=== PATIENT | female | born 1985 | race Caucasian/White ===

== ENCOUNTER 2018-06-01 17:26 | Emergency (ER) | payer SELFPAY ==
--- NOTE | 2018-06-01 19:01 | ER Document Report ---
ED Medical Screen (RME) - General Chief Complaint: Breathing Difficulty Stated Complaint: SHORTNESS OF BREATH Time Seen by Provider: 06/01/18 18:51 Mode of Arrival: Ambulatory Information source: Patient Notes: This is a 33-year-old female who presents to the emergency room with cough, shortness of breath, chills. Patient does have a history of intracranial hypertension (Diamox), pneumonia with pleural effusion requiring thoracentesis (in [place] last January). Patient states she has had the above symptoms for the past 2-3 days and states that it feels like her effusion is coming back. TRAVEL OUTSIDE OF THE [place] IN LAST 30 DAYS: No - Related Data Allergies/Adverse Reactions: No Known Allergies Allergy (Unverified 06/01/18 18:51) Physical Exam - Vital signs Vitals: Temp Pulse Resp BP Pulse Ox 98.4 F 104 H 17 128/76 H 99 06/01/18 17:43 06/01/18 17:43 06/01/18 17:43 06/01/18 17:43 06/01/18 17:43 Course - Vital Signs Vital signs: Temp Pulse Resp BP Pulse Ox 98.4 F 104 H 17 128/76 H 99 06/01/18 17:43 06/01/18 17:43 06/01/18 17:43 06/01/18 17:43 06/01/18 17:43
--- NOTE | 2018-06-01 20:03 | RADIOLOGY REPORT (SQ) ---
EXAM DESCRIPTION: XR CHEST 2 VIEWS COMPLETED DATE/TME: 06/01/2018 19:00 CLINICAL HISTORY: 33 years, Female, sob Findings: The heart is not enlarged. No consolidation or pleural effusion. No pulmonary edema or pneumothorax. IMPRESSION: No acute disease.
[2018-06-01 20:16] LABS: ABSOLUTE EOSINOPHILS # (AUTO) 0.2 10^3/uL (0.0-0.6); ABSOLUTE LYMPHOCYTES (AUTO) 2.9 10^3/uL (0.5-4.7); ABSOLUTE MONOCYTES (AUTO) 0.7 10^3/uL (0.1-1.4); ABSOLUTE NEUT (AUTO) 7.6 10^3/uL (1.7-8.2); BASOPHILS % (AUTO) 0.4 % (0-2); EOSINOPHILS % (AUTO) 1.9 % (0-6); HEMATOCRIT 45.5 % (36.0-47.0); HEMOGLOBIN 15.2 g/dL (12.0-15.5); LYMPHOCYTES % (AUTO) 25.3 % (13-45); MEAN CORPUSCULAR HEMOGLOBIN 30.5 pg (27.0-33.4); MEAN CORPUSCULAR HGB CONC 33.5 g/dL (32.0-36.0); MEAN CORPUSCULAR VOLUME 91 fl (80-97); MONOCYTES % (AUTO) 5.8 % (3-13); PLATELET COUNT 269 10^3/uL (150-450); RED CELL DISTRIBUTION WIDTH 14.9 % (11.5-14.0); SEGMENTED NEUTROPHILS % (AUTO) 66.6 % (42-78); TOTAL CELLS COUNTED % (AUTO) 100 %; WHITE BLOOD COUNT 11.4 10^3/uL (4.0-10.5)
[2018-06-01 20:29] LABS: INTERNATIONAL RATION (INR) 0.96; PROTHROMBIN TIME 13.3 SEC (11.4-15.4)
[2018-06-01 20:41] LABS: ALANINE AMINOTRANSFERASE 35 U/L (9-52); ALKALINE PHOSPHATASE 110 U/L (38-126); ANION GAP 7 (5-19); ASPARTATE AMINO TRANSFERASE 21 U/L (14-36); BILIRUBIN,DIRECT 0.2 mg/dL (0.0-0.4); BILIRUBIN,TOTAL 0.2 mg/dL (0.2-1.3); BLOOD UREA NITROGEN 10 mg/dL (7-20); CALCIUM 9.7 mg/dL (8.4-10.2); CARBON DIOXIDE 25 mmol/L (22-30); CHLORIDE 107 mmol/L (98-107); GLUCOSE 75 mg/dL (75-110); POTASSIUM 4.2 mmol/L (3.6-5.0); SODIUM 138.8 mmol/L (137-145); TOTAL PROTEIN 6.6 g/dL (6.3-8.2)
--- NOTE | 2018-06-01 21:09 | EKG REPORT ---
SEVERITY:- ABNORMAL ECG - SINUS RHYTHM NONSPECIFIC T ABNORMALITIES, ANTERIOR LEADS : Confirmed by: Renetta High MD 01-Jun-2018 21:08:32
[2018-06-01] MEDS ORDERED: ALBUTEROL SULFATE HFA (90 MCG/PUFF) 200 PUFF/8.5 GM MDI IH ONE (21:32)
[2018-06-01] MEDS ORDERED: LIDOCAINE 5% (700 MG) TRANSDERMAL ADH..PATCH TP ONE (21:32)
[2018-06-01] MEDS ORDERED: KETOROLAC TROMETHAMINE 60 MG/2 ML SDV IM ONE (21:32)
[2018-06-01] MEDS ORDERED: PREDNISONE 20 MG TABLET PO ONE (21:32)
--- NOTE | 2018-06-01 21:38 | ER Document Report ---
ED General - General Chief Complaint: Breathing Difficulty Stated Complaint: SHORTNESS OF BREATH Time Seen by Provider: 06/01/18 18:51 Mode of Arrival: Ambulatory Notes: Patient is a 33-year-old female with a past medical history of a pleural effusion in January who presents stating that she has the feeling that she has the same condition again. The patient reports that she has been coughing, felt short of breath and has shoulder and chest wall pain when she coughs. States her symptoms been ongoing for the past 3-4 days and getting progressively worse. Nothing improves or worsens the symptoms. She does not have a local primary care physician. She does continue to smoke. She has not had fever, vomiting, headache, or syncope. TRAVEL OUTSIDE OF THE [place] IN LAST 30 DAYS: No - Related Data Allergies/Adverse Reactions: No Known Allergies Allergy (Unverified 06/01/18 18:51) Past Medical History - General Information source: Patient - Social History Smoking Status: Current Every Day Smoker Frequency of alcohol use: None Drug Abuse: None Lives with: Family Family History: Reviewed & Not Pertinent Patient has suicidal ideation: No Patient has homicidal ideation: No - Past Medical History Cardiac Medical History: Reports: Hx Hypertension Pulmonary Medical History: Reports: Hx Pneumonia Renal/ Medical History: Reports: Hx Kidney Stones. Denies: Hx Peritoneal Dialysis Psychiatric Medical History: Comment Only: Hx Depression - anxiety Past Surgical History: Reports: Hx Section, Hx Cholecystectomy, Hx Kidney (Renal Surgery) - stone removal Review of Systems - Review of Systems Notes: Constitutional: Negative for fever. HENT: Negative for sore throat. Eyes: Negative for visual changes. Cardiovascular: Positive for chest wall pain Respiratory: Positive for shortness of breath. Gastrointestinal: Negative for abdominal pain, vomiting or diarrhea. Genitourinary: Negative for dysuria. Musculoskeletal: Negative for back pain. Skin: Negative for rash. Neurological: Negative for headaches, weakness or numbness. 10 point ROS negative except as marked above and in HPI. Physical Exam - Vital signs Vitals: Temp Pulse Resp BP Pulse Ox 98.4 F 104 H 17 128/76 H 99 06/01/18 17:43 06/01/18 17:43 06/01/18 17:43 06/01/18 17:43 06/01/18 17:43 Interpretation: Tachycardic - Resolved at the time of my assessment, heart rate 74 Notes: PHYSICAL EXAMINATION: GENERAL: Well-appearing, well-nourished and in no acute distress. HEAD: Atraumatic, normocephalic. EYES: Pupils equal round and reactive to light, extraocular movements intact, sclera anicteric, conjunctiva are normal. ENT: nares patent, oropharynx clear without exudates. Moist mucous membranes. NECK: Normal range of motion, supple without lymphadenopathy LUNGS: Breath sounds clear to auscultation bilaterally and equal. No wheezes rales or rhonchi. HEART: Regular rate and rhythm without murmurs ABDOMEN: Soft, nontender, normoactive bowel sounds. No guarding, no rebound. No masses appreciated. EXTREMITIES: Normal range of motion, no pitting or edema. No cyanosis. NEUROLOGICAL: No focal neurological deficits. Moves all extremities spont aneously and on command. PSYCH: Normal mood, normal affect. SKIN: Warm, Dry, normal turgor, no rashes or lesions noted. Course - Re-evaluation Re-evalutation: 06/01/18 21:35 Patient presents with a clinical history and exam most consistent with an acute viral bronchitis. Patient is overall well in appearance without tachypnea, hypoxemia, tachycardia, or difficulty with ambulation. Breath sounds are clear bilaterally with exception of faint expiratory wheezing. No fever. Patient does have additional signs of upper respiratory infection including nasal congestion, sore throat, and sinus pressure. No indication for labs or imaging. Will treat with bronchodilators, single dose of dexamethasone, and Tessalon Perles. Patient was very concerned about the possibility of a recurrent pleural effusion. I did spend greater than 20 minutes explaining to the patient that her chest x-ray does not demonstrate a pleural effusion today neither on my review nor the radiologist review. She also does not have any significant l eukocytosis, no tachycardia the time of my assessment at heart rate of 74, no tachypnea, hypoxia or retractions. There is no diminished breath sounds in any manner. The patient did repeatedly state "whether or not it shows that I know it is there". I did offer to proceed with a CT of her chest to more alleviate her concern but did review the risks of repeated radiation exposure to the chest as well as that she has a ready had a multitude of CAT scans in the past several months and years for similar concerns. At this point the patient did elect to avoid CT, states she will follow-up as an outpatient for repeat chest x-ray if she does persist with her symptoms. At this time will discharge with return precautions and follow-up recommendations. Verbal discharge instructions given a the bedside and opportunity for questions given. Medication warnings reviewed. Patient is in agreement with this plan and has verbalized understanding of return precautions and the need for primary care follow-up in the next 24-72 hours. - Vital Signs Vital signs: Temp Pulse Resp BP Pulse Ox 98.5 F 81 18 125/66 100 06/01/18 22:05 06/01/18 22:05 06/01/18 22:05 06/01/18 22:05 06/01/18 22:05 - Laboratory Result Diagrams: 06/01/18 19:49 06/01/18 19:49 Laboratory results interpreted by me: 06/01/18 19:49 WBC 11.4 H RDW 14.9 H - Diagnostic Test Radiology reviewed: Image reviewed, Reports reviewed Radiology results interpreted by me: 06/01/18 21:37 Chest x-ray: No acute infiltrate or pneumothorax - EKG Interpretation by Me Additional EKG results interpreted by me: 06/01/18 21:37 Sinus rhythm, rate 91. No ST elevations or depressions. QTC is 439. Discharge - Discharge Clinical Impression: Persistent cough, Bronchitis, Rib pain on left side, Wheezing, Tobacco abuse Condition: Good Disposition: HOME, SELF-CARE Additional Instructions: You were seen for symptoms most consistent with bronchitis. Your chest x-ray and labs are all normal today. This can take up to 12 weeks to fully resolve. This is generally due to a viral infection. Please follow-up with your primary doctor in the next 2-3 days. Return if you develop worsening cough, vomiting, fever >100.4, pass out, begin coughing blood, or have any other symptoms that are concerning to you. Please use the medications prescribed today as directed. Prescriptions: Tramadol HCl [Ultram 50 mg Tablet] 50 mg PO Q6HP PRN #10 tablet PRN Reason: Benzonatate [Tessalon Perles 100 mg Capsule] 100 mg PO Q8HP PRN #40 capsule PRN Reason: Prednisone [Deltasone 20 mg Tablet] 2 tab PO DAILY 5 Days tablet
[2018-06-01 22:06] VITALS: BP 125/66
== END 2018-06-01 21:48 | disposition home or self-care (01) ==
LOC: ER 17:26
DX: J40 Bronchitis, not specified as acute or chronic (principal); R05 Cough; R07.81 Pleurodynia; R06.2 Wheezing; R09.81 Nasal congestion; J02.9 Acute pharyngitis, unspecified; I10 Essential (primary) hypertension; M25.519 Pain in unspecified shoulder; F17.200 Nicotine dependence, unspecified, uncomplicated; Z87.01 Personal history of pneumonia (recurrent)
CPT/HCPCS: 93005; 99284; 96372; 36415; 85025; 85610; 80053; 71046; 93010; J1885; J7512; J3490

== ENCOUNTER 2018-06-10 19:18 | Emergency (ER) | payer SELFPAY ==
--- NOTE | 2018-06-10 19:46 | ER Document Report ---
ED Medical Screen (RME) - General Chief Complaint: Cough Stated Complaint: COUGH,SORE THROAT Time Seen by Provider: 06/10/18 19:45 TRAVEL OUTSIDE OF THE [place] IN LAST 30 DAYS: No - HPI Notes: 06/10/18 19:45 Patient presents with cough has a history of pneumonia patient continues to smoke smoking since 10 - Related Data Allergies/Adverse Reactions: No Known Allergies Allergy (Unverified 06/01/18 18:51) Past Medical History - Past Medical History Cardiac Medical History: Reports: Hx Hypertension Pulmonary Medical History: Reports: Hx Pneumonia Renal/ Medical History: Reports: Hx Kidney Stones. Denies: Hx Peritoneal Dialysis Psychiatric Medical History: Comment Only: Hx Depression - anxiety Past Surgical History: Reports: Hx Section, Hx Cholecystectomy, Hx Kidney (Renal Surgery) - stone removal Review of Systems - Review of Systems Respiratory: Cough, Short of breath Physical Exam - Vital signs Vitals: Temp Pulse Resp BP Pulse Ox 97.9 F 105 H 18 141/94 H 99 06/10/18 19:20 06/10/18 19:20 06/10/18 19:20 06/10/18 19:20 06/10/18 19:20 - Respiratory Respiratory status: No respiratory distress Chest status: Nontender Breath sounds: Normal Chest palpation: Normal Course - Vital Signs Vital signs: Temp Pulse Resp BP Pulse Ox 97.9 F 105 H 18 141/94 H 99 06/10/18 19:20 06/10/18 19:20 06/10/18 19:20 06/10/18 19:20 06/10/18 19:20
[2018-06-10] MEDS ORDERED: LIDOCAINE 2% INJ-PF (20 MG/ML) 10 ML AMPUL NEB ONE (19:47)
[2018-06-10] MEDS ORDERED: IPRATROPIUM/ALBUTEROL 0.5-2.5 MG/3 ML AMPUL NEB ONE (19:47)
[2018-06-10] MEDS ORDERED: NORMAL SALINE 1000 ML 1,000 ML IV ONE (19:47)
[2018-06-10] MEDS ORDERED: MAGNESIUM SULFATE/D5W 1 GM/100 ML RTUPB IV ONE (19:47)
[2018-06-10 20:34] LABS: ABSOLUTE BASOPHILS # (AUTO) 0.1 10^3/uL (0.0-0.2); ABSOLUTE EOSINOPHILS # (AUTO) 0.5 10^3/uL (0.0-0.6); ABSOLUTE LYMPHOCYTES (AUTO) 2.2 10^3/uL (0.5-4.7); ABSOLUTE NEUT (AUTO) 6.9 10^3/uL (1.7-8.2); BASOPHILS % (AUTO) 0.5 % (0-2); HEMATOCRIT 45.7 % (36.0-47.0); HEMOGLOBIN 15.7 g/dL (12.0-15.5); LYMPHOCYTES % (AUTO) 20.5 % (13-45); MEAN CORPUSCULAR HEMOGLOBIN 31.2 pg (27.0-33.4); MEAN CORPUSCULAR HGB CONC 34.2 g/dL (32.0-36.0); MEAN CORPUSCULAR VOLUME 91 fl (80-97); MONOCYTES % (AUTO) 9.2 % (3-13); PLATELET COUNT 287 10^3/uL (150-450); RED BLOOD COUNT 5.02 10^6/uL (3.72-5.28); SEGMENTED NEUTROPHILS % (AUTO) 64.8 % (42-78); TOTAL CELLS COUNTED % (AUTO) 100 %; WHITE BLOOD COUNT 10.6 10^3/uL (4.0-10.5)
[2018-06-10 20:47] LABS: ANION GAP 9 (5-19); BLOOD UREA NITROGEN 12 mg/dL (7-20); CALCIUM 9.4 mg/dL (8.4-10.2); CARBON DIOXIDE 29 mmol/L (22-30); CHLORIDE 101 mmol/L (98-107); GLUCOSE 83 mg/dL (75-110); POTASSIUM 4.4 mmol/L (3.6-5.0); SODIUM 138.8 mmol/L (137-145)
[2018-06-10] MEDS ORDERED: KETOROLAC TROMETHAMINE INJ/PF 30 MG/1 ML SDV IV ONE (20:50)
--- NOTE | 2018-06-10 20:51 | ER Document Report ---
ED Respiratory Problem - General Chief Complaint: Cough Stated Complaint: COUGH,SORE THROAT Time Seen by Provider: 06/10/18 19:45 Mode of Arrival: Ambulatory Information source: Patient Notes: Patient is a 33-year-old female who presents to the emergency department with chief complaint of cough, wheezing and congestion. She reports this is been ongoing for approximately 2 weeks now. She states she was seen here 1 week ago and diagnosed with a bronchitis. Patient reports she was taking all her medications as prescribed however she states her symptoms have not improved. Patient reports past medical history of pneumonia, bronchitis and pleural effusion. She states that she smokes approximately 1 pack a day. TRAVEL OUTSIDE OF THE [place] IN LAST 30 DAYS: No - Related Data Allergies/Adverse Reactions: No Known Allergies Allergy (Verified 06/10/18 21:51) Past Medical History - General Information source: Patient - Social History Smoking Status: Current Every Day Smoker Chew tobacco use (# tins/day): No Frequency of alcohol use: None Drug Abuse: None Family History: Reviewed & Not Pertinent Patient has suicidal ideation: No Patient has homicidal ideation: No - Past Medical History Cardiac Medical History: Reports: Hx Hypertension Pulmonary Medical History: Reports: Hx Bronchitis, Hx Pneumonia, Other - Pleural effusion in 2018 Renal/ Medical History: Reports: Hx Kidney Stones. Denies: Hx Peritoneal Dialysis Musculoskeletal Medical History: Reports Hx Fibromyalgia Psychiatric Medical History: Comment Only: Hx Depression - anxiety Past Surgical History: Reports: Hx Section, Hx Cholecystectomy, Hx Kidney (Renal Surgery) - stone removal - Immunizations Immunizations up to date: Yes Hx Diphtheria, Pertussis, Tetanus Vaccination: Yes Review of Systems - Review of Systems Constitutional: No symptoms reported, Chills. denies: Fever EENT: No symptoms reported Cardiovascular: No symptoms reported. denies: Chest pain Respiratory: No symptoms reported, Cough, Short of breath, Sputum - Brown, Wheezing Gastrointestinal: No symptoms reported. denies: Diarrhea, Nausea, Vomiting Genitourinary: No symptoms reported Female Genitourinary: No symptoms reported Musculoskeletal: No symptoms reported Skin: No symptoms reported Hematologic/Lymphatic: No symptoms reported Neurological/Psychological: No symptoms reported Physical Exam - Vital signs Vitals: Temp Pulse Resp BP Pulse Ox 97.9 F 105 H 18 141/94 H 99 06/10/18 19:20 06/10/18 19:20 06/10/18 19:20 06/10/18 19:20 06/10/18 19:20 - Notes Notes: PHYSICAL EXAMINATION: GENERAL: Well-appearing, well-nourished and in no acute distress. HEAD: Atraumatic, normocephalic. EYES: Pupils equal round and reactive to light, extraocular movements intact, conjunctiva are normal. ENT: Nares patent, oropharynx clear without exudates. Moist mucous membranes. NECK: Normal range of motion, supple without lymphadenopathy LUNGS: Coarse breath sounds with expiratory wheezing bilaterally. HEART: Regular rate and rhythm without murmurs ABDOMEN: Soft, nontender, nondistended abdomen. No guarding, no rebound. No masses appreciated. Female : No CVA tenderness. Musculoskeletal: Normal range of motion, no pitting or edema. No cyanosis. NEUROLOGICAL: Cranial nerves grossly intact. Normal speech, normal gait. Normal sensory, motor exams PSYCH: Normal mood, normal affect. SKIN: Warm, Dry, normal turgor, no rashes or lesions noted. Course - Re-evaluation Re-evalutation: CBC and CMP are unremarkable. Chest x-ray is without any infiltrates, pneumothorax or pericardial effusions. Patient reports she is feeling much improved after administration of breathing treatments, Solu-Medrol and magnesium. Patient states she has to work in the morning and needs to go home. Patient's lung sounds have improved significantly and only a faint expiratory wheeze remains. Encourage patient to use her albuterol inhaler 2 puffs every 4 hours as needed for any shortness of breath or wheezing. Encourage patient to quit smoking. Patient given information regarding the [facility] that she can establish with a primary care provider. - Vital Signs Vital signs: Temp Pulse Resp BP Pulse Ox 97.7 F 93 20 139/90 H 100 06/10/18 23:02 06/10/18 23:02 06/10/18 23:02 06/10/18 23:02 06/10/18 23:02 - Laboratory Result Diagrams: 06/10/18 20:22 06/10/18 20:22 Laboratory results interpreted by me: 06/10/18 20:22 WBC 10.6 H Hgb 15.7 H RDW 15.0 H Discharge - Discharge Clinical Impression: Bronchitis, Wheezing Condition: Stable Disposition: HOME, SELF-CARE Additional Instructions: BRONCHITIS WITH BRONCHOSPASM (WHEEZING): You have bronchitis with bronchospasm (wheezing). Sometimes people develop wheezing with a chest cold. This occurs either because of an underlying tendency toward asthma or because the virus itself irritates the bronchial tubes. This irritation causes cough, shortness of breath, and wheezing. Emergency treatment of bronchospasm may include adrenaline shots or bronchodilator aerosol. You may feel lightheaded and have a rapid pulse for an hour or two. Rest and get plenty of fluids. At home, we'll treat you with a bronchodilator inhaler. Corticosteroids may be required for some patients. Until you recover, avoid chemical fumes, dusts, pollens, and exercising in very cold or dry air. If you smoke, stop now! Most cases of bronchitis get better without antibiotics. We prescribe antibiotics when we believe bacteria are damaging your airways, or if there's high risk the bronchitis will worsen into pneumonia. Increase your fluid intake. A cool mist humidifier may make your lungs more comfortable. An expectorant (cough medicine that loosens phlegm) can help. Repeated episodes of bronchitis and bronchospasm may result in lung damage -- for example, chronic bronchitis, recurrent pneumonias, or emphysema. If you develop a fever, increased wheezing, chest pain, or severe shortness of breath, you should contact the doctor immediately. INHALED BRONCHODILATORS: You have received a treatment of and/or prescription for an inhaled bronchodilator -- a medication which stimulates the airways in the lung to dilate. This improves the flow of air in asthma, bronchitis, and emphysema. These medicines have some similarity to adrenaline, and can cause similar s bita effects: shakiness, racing heart, and a sense of nervousness. These side effects decrease with time. Contact your doctor if these side effects are severe. Do not over-use the medicine. Too-frequent use of the inhaler may make it ineffective. Call your doctor if the inhaler is not controlling your symptoms at the prescribed doses. USE OF ACETAMINOPHEN (Tylenol): Acetaminophen may be taken for pain relief or fever control. It's much safer than aspirin, offering a wider range of "safe" dosages. It is safe during . Some brand names are Tylenol, Panadol, Datril, Anacin 3, Tempra, and Liquiprin. Acetaminophen can be repeated every four hours. The following are maximum recommended dosages: >89 pounds or adults 650 mg to 900 mg Acetaminophen can be repeated every four hours. Maximum dose not to exceed 4000 mg a day. SMOKING: If you smoke, you should stop smoking. The tar and chemicals in cigarette smoke are harmful. Smoking has been shown to cause: emphysema chronic bronchitis lung cancer mouth and throat cancer stomach and pancreas cancer premature aging defects In addition, smoking increases ear and lung infections in children of smokers. FOLLOW-UP CARE: If you have been referred to a physician for follow-up care, call the physicians office for an appointment as you were instructed or within the next two days. If you experience worsening or a significant change in your symptoms, notify the physician immediately or return to the Emergency Department at any time for re-evaluation. As discussed use the albuterol inhaler 2 puffs every 4 hours as needed for shortness of breath or wheezing. Please try to quit smoking. Please follow-up with your primary care provider or your toolroom machinist. Return to the emergency department if you experience worsening shortness of breath, difficulty breathing or any other symptom that is concerning to you.
--- NOTE | 2018-06-10 21:05 | RADIOLOGY REPORT (SQ) ---
XR CHEST 2 VIEWS HISTORY: Shortness of breath. COMPARISON: None. FINDINGS: The heart size is normal. The lungs are clear. No pleural effusions or pneumothorax is seen. No acute bony findings. IMPRESSION: No evidence of acute cardiopulmonary disease.
[2018-06-10] MEDS ORDERED: ALBUTEROL SULFATE HFA (90 MCG/PUFF) 8 GM MDI (1 MDI/ER DISP) IH ONE (22:24)
[2018-06-10 23:03] VITALS: BP 139/90
== END 2018-06-10 23:02 | disposition home or self-care (01) ==
LOC: ER 19:18
DX: J40 Bronchitis, not specified as acute or chronic (principal); R05 Cough; R06.2 Wheezing; I10 Essential (primary) hypertension; F17.200 Nicotine dependence, unspecified, uncomplicated; Z87.01 Personal history of pneumonia (recurrent)
CPT/HCPCS: 36415; 83735; 85025; 80048; 71046; J1885; J3475; J7030; J3490; J7620

== ENCOUNTER 2018-07-05 18:16 | Emergency (ER) | payer SELFPAY ==
[2018-07-05 18:22] VITALS: BP 130/93
[2018-07-05] MEDS ORDERED: DEXAMETHASONE SOD PHOS INJ 10 MG/1 ML VIAL IM ONE (18:35)
--- NOTE | 2018-07-05 18:38 | ER Document Report ---
HPI - HPI Time Seen by Provider: 07/05/18 18:27 Pain Level: 5 Notes: Patient is a 33-year-old female who presents to the ED complaining of nasal congestion/discharge, dry nonproductive cough, sore throat, subjective fever, body aches 2 days. Patient states that she is still eating and drinking without difficulties, but does have a decreased p.o. intake. She is still urinating normally having normal bowel movements. Patient has been using some [id number] meds for symptoms. She denies any significant past medical history including dx'd cardiopulmonary history and immunocompromised conditions. Patient denies any smoking or IV drug use. Denies any current headache, neck pain, chest pain, palpitations, syncope, shortness of breath, wheeze, dyspnea, abdominal pain, nausea/vomiting/diarrhea, urinary retention, dysuria, hematuria, or rash. - ROS Systems Reviewed and Negative: Yes All other systems reviewed and negative - REPRODUCTIVE Reproductive: DENIES: : Past Medical History - Social History Smoking Status: Unknown if Ever Smoked Family History: Reviewed & Not Pertinent - Past Medical History Cardiac Medical History: Reports: Hx Hypertension Pulmonary Medical History: Reports: Hx Bronchitis, Hx Pneumonia Renal/ Medical History: Reports: Hx Kidney Stones. Denies: Hx Peritoneal Dialysis Musculoskeletal Medical History: Reports Hx Fibromyalgia Psychiatric Medical History: Comment Only: Hx Depression - anxiety Past Surgical History: Reports: Hx Section, Hx Cholecystectomy, Hx Kidney (Renal Surgery) - stone removal - Immunizations Immunizations up to date: Yes Hx Diphtheria, Pertussis, Tetanus Vaccination: Yes Vertical Provider Document - CONSTITUTIONAL Agree With Documented VS: Yes Notes: PHYSICAL EXAMINATION: GENERAL: Well-appearing, well-nourished and in no acute distress. A&Ox4. Answers questions appropriately. Moves comfortably w/o notable distress HEAD: Atraumatic, normocephalic. EYES: Pupils equal round and reactive to light, extraocular movements intact, sclera anicteric, conjunctiva are normal. ENT: EAC clear b/l. TM's intact b/l without erythema or perforation. Nares patent and with clear discharge. oropharynx mild erythema without exudates. 3+ tonsilar hypertrophy with erythema b/l no exudates. No palatine shift. Uvula midline. No tongue protrusion. No drooling, hoarseness, or airway compromise. Moist mucous membranes. No sinus tenderness. NECK: Normal range of motion, supple without lymphadenopathy. No rigidity/meningismus. LUNGS: Breath sounds clear to auscultation bilaterally and equal. No wheezes rales or rhonchi. No retractions HEART: Regular rate and rhythm without murmurs, rubs, gallops. ABDOMEN: Soft, nontender, nondistended abdomen. No guarding, no rebound. No rmal bowel sounds present. No CVA tenderness bilaterally. No hepatosplenomegaly. NEUROLOGICAL: Normal speech, normal gait. PSYCH: Normal mood, normal affect. SKIN: Warm, Dry, normal turgor, no rashes or lesions noted. - INFECTION CONTROL TRAVEL OUTSIDE OF THE [place] IN LAST 30 DAYS: No Course - Re-evaluation Re-evalutation: 07/05/18 19:48 Patient is an afebrile, well-hydrated, 33-year-old female who presents the emergency department with acute URI and strep pharyngitis. Vitals are a cceptable without significant tachycardia, tachypnea, or hypoxia. PE is otherwise unremarkable. Rapid strep is positive. Influenza and chest x-ray were unremarkable. No further labs or imaging warranted at this time. She is nontoxic-appearing and is tolerating p.o. without difficulty. Patient was given Decadron IM as well as Tylenol. Low suspicion for any meningitis, sepsis, peritonsillar/pharyngeal abscess, respiratory compromise, Mao's, or other emergent systemic condition at this time. Patient is aware this condition can change from initial presentation and she needs to monitor symptoms closely. I will send her home with a prescription for amoxicillin. Conservative measures otherwise for symptoms. Recheck with your PCM in 2-3 days. Return to the ED with any worsening/concerning symptoms otherwise as reviewed in discharge. Patient is in agreement. - Vital Signs Vital signs: Temp Pulse Resp BP Pulse Ox 98.9 F 119 H 17 130/93 H 99 07/05/18 18:20 07/05/18 18:20 07/05/18 18:20 07/05/18 18:20 07/05/18 18:20 Discharge - Discharge Clinical Impression: Strep pharyngitis, Acute URI Condition: Stable Disposition: HOME, SELF-CARE Instructions: Strep Throat ([facility]), Upper Respiratory Illness ([facility]), Amoxicillin ([facility]) Additional Instructions: Maintain adequate fluid intake Take meds as directed Salt water gargles, throat sprays, mouthwash rinse, peroxide gargles tylenol/ibuprofen as needed New toothbrush tomorrow evening over the counter cold medication as needed for symptoms F/u: with your PCM in 2-3 days for a recheck Consider consult with ENT for ongoing/worsening symptoms Return to the ED with any fever, worsening pain, chest pain, neck pain/stiffness, shortness of breath, cough, drooling, trouble swallowing/breathing, abdominal pain, n/v/d, rash, or worsening/concerning symptoms otherwise. Prescriptions: Amoxicillin Trihydrate [Amoxil 875 mg Tablet] 1 tab PO BID #20 tablet Forms: Elevated Blood Pressure Referrals: DC BENOIT DO [ASSOCIATE] - Follow up as needed [facility] [Provider Group] - Follow up as needed
--- NOTE | 2018-07-05 19:06 | RADIOLOGY REPORT (SQ) ---
EXAM DESCRIPTION: CHEST 2 VIEWS COMPLETED DATE/TIME: 07/05/2018 6:52 pm REASON FOR STUDY: cough COMPARISON: 06/10/2018 EXAM PARAMETERS: NUMBER OF VIEWS: two views TECHNIQUE: Digital Frontal and Lateral radiographic views of the chest acquired. RADIATION DOSE: NA LIMITATIONS: none FINDINGS: LUNGS AND PLEURA: No opacities, masses or pneumothorax. No pleural effusion. MEDIASTINUM AND HILAR STRUCTURES: No masses or contour abnormalities. HEART AND VASCULAR STRUCTURES: Heart normal size. No evidence for failure. BONES: No acute findings. HARDWARE: None in the chest. OTHER: No other significant finding. IMPRESSION: NO ACUTE RADIOGRAPHIC FINDING IN THE CHEST. TECHNICAL DOCUMENTATION: JOB ID: [id number] [employer] All Rights Reserved Reading location - IP/workstation name: [email or web address]
[2018-07-05 19:37] LABS: A TYPE INFLUENZA AG NEGATIVE (NEGATIVE); B INFLUENZA AG NEGATIVE (NEGATIVE)
[2018-07-05] MEDS ORDERED: ACETAMINOPHEN 325 MG TABLET PO ONE (19:50)
== END 2018-07-05 19:59 | disposition home or self-care (01) ==
LOC: ER 18:16
DX: J02.0 Streptococcal pharyngitis (principal); R09.81 Nasal congestion; R05 Cough; I10 Essential (primary) hypertension
CPT/HCPCS: 99283; 96372; 87880; 87804; 71046; J1100

== ENCOUNTER 2018-10-14 20:42 | Emergency (ER) | payer SELFPAY | END 2018-10-14 21:19 | disposition left against medical advice (07) | LOC: ER 20:42 | DX: Z53.21 Procedure and treatment not carried out due to patient leaving prior to being seen by health care provider (principal) ==

== ENCOUNTER 2018-10-17 19:30 | Emergency (ER) | payer MEDICAID ==
--- NOTE | 2018-10-17 20:41 | ER Document Report ---
ED Medical Screen (RME) - General Chief Complaint: Breathing Difficulty Stated Complaint: RIB PAIN/WHEEZING/CHEST PAIN Time Seen by Provider: 10/17/18 20:38 Notes: Patient is a 33-year-old female presents to the emergency department for general ized respiratory distress and chest pain. Patient states she has an extensive history of multiple pulmonary effusions. States that last when she had was a year ago on her left side. Patient states she has had generalized respiratory distress for the last couple of weeks. States she "works all the time" so has not seen her primary care provider for this. Patient states in the last 24 hours she noted pain in the left side of her ribs radiating to the middle of her chest and also in her left shoulder. This concerned her which is why she presents to the emergency room. LUNGS: Diminished to auscultation bilaterally, no discernible wheezes, rales, or rhonchi. No respiratory distress. I have greeted and performed a rapid initial assessment of this patient. A comprehensive ED assessment and evaluation of the patient, analysis of test results and completion of the medical decision making process will be conducted by additional ED providers. I have specifically instructed the patient or family members with the patient to immediately return to any nursing staff should anything change in the patient's condition or with their chief complaint. This medical record was dictated with voice recognizing software. There may be grammatical, syntax errors that are unintended. TRAVEL OUTSIDE OF THE [place] IN LAST 30 DAYS: No - Related Data Allergies/Adverse Reactions: No Known Allergies Allergy (Verified 10/17/18 19:44) Past Medical History - Past Medical History Cardiac Medical History: Reports: Hx Hypertension Pulmonary Medical History: Reports: Hx Bronchitis, Hx Pneumonia Renal/ Medical History: Reports: Hx Kidney Stones. Denies: Hx Peritoneal Dialysis Musculoskeltal Medical History: Reports Hx Fibromyalgia Psychiatric Medical History: Comment Only: Hx Depression - anxiety Past Surgical History: Reports: Hx Section, Hx Cholecystectomy, Hx Kidney (Renal Surgery) - stone removal - Immunizations Immunizations up to date: Yes Hx Diphtheria, Pertussis, Tetanus Vaccination: Yes
[2018-10-17 21:27] LABS: ABSOLUTE BASOPHILS # (AUTO) 0.1 10^3/uL (0.0-0.2); ABSOLUTE EOSINOPHILS # (AUTO) 0.3 10^3/uL (0.0-0.6); ABSOLUTE LYMPHOCYTES (AUTO) 2.7 10^3/uL (0.5-4.7); ABSOLUTE MONOCYTES (AUTO) 0.7 10^3/uL (0.1-1.4); ABSOLUTE NEUT (AUTO) 6.5 10^3/uL (1.7-8.2); BASOPHILS % (AUTO) 0.8 % (0-2); EOSINOPHILS % (AUTO) 3.2 % (0-6); HEMATOCRIT 43.5 % (36.0-47.0); HEMOGLOBIN 14.4 g/dL (12.0-15.5); LYMPHOCYTES % (AUTO) 26.1 % (13-45); MEAN CORPUSCULAR HEMOGLOBIN 30.4 pg (27.0-33.4); MEAN CORPUSCULAR HGB CONC 33.2 g/dL (32.0-36.0); MEAN CORPUSCULAR VOLUME 92 fl (80-97); MONOCYTES % (AUTO) 6.4 % (3-13); PLATELET COUNT 245 10^3/uL (150-450); RED BLOOD COUNT 4.74 10^6/uL (3.72-5.28); RED CELL DISTRIBUTION WIDTH 13.9 % (11.5-14.0); SEGMENTED NEUTROPHILS % (AUTO) 63.5 % (42-78); TOTAL CELLS COUNTED % (AUTO) 100 %; WHITE BLOOD COUNT 10.3 10^3/uL (4.0-10.5)
[2018-10-17 21:29] VITALS: BP 146/95
--- NOTE | 2018-10-17 21:37 | RADIOLOGY REPORT (SQ) ---
EXAM DESCRIPTION: XR CHEST 2 VIEWS COMPLETED DATE/TME: 10/17/2018 20:38 CLINICAL HISTORY: 33 years, Female, CP SOB COMPARISON: 07/05/2018. NUMBER OF VIEWS: 2 TECHNIQUE: Two-view, PA and lateral chest was obtained. LIMITATIONS: None. FINDINGS: Unremarkable cardiac and mediastinal silhouette. Heart size is normal. Identification of stable. LEFT linear basilar opacities suggesting prominent vasculature or subsegmental atelectasis/scarring. Lungs are otherwise clear without focal opacity, pneumothorax or pleural effusions. The visualized bones are within normal limits. IMPRESSION: No acute cardiopulmonary abnormalities. copyright 2010 [employer]- All Rights Reserved
[2018-10-17 21:48] LABS: ALANINE AMINOTRANSFERASE 35 U/L (9-52); ALBUMIN 3.7 g/dL (3.5-5.0); ALKALINE PHOSPHATASE 102 U/L (38-126); ANION GAP 10 (5-19); ASPARTATE AMINO TRANSFERASE 18 U/L (14-36); BILIRUBIN,DIRECT 0.2 mg/dL (0.0-0.4); BILIRUBIN,TOTAL 0.2 mg/dL (0.2-1.3); BLOOD UREA NITROGEN 7 mg/dL (7-20); CARBON DIOXIDE 23 mmol/L (22-30); CHLORIDE 108 mmol/L (98-107); POTASSIUM 4.2 mmol/L (3.6-5.0); SODIUM 140.5 mmol/L (137-145); TOTAL PROTEIN 5.9 g/dL (6.3-8.2)
[2018-10-17 21:51] LABS: GLUCOSE 67 mg/dL (75-110)
[2018-10-17] MEDS ORDERED: IPRATROPIUM/ALBUTEROL 0.5-2.5 MG/3 ML AMPUL NEB ONE (22:23)
--- NOTE | 2018-10-17 22:25 | ER Document Report ---
ED General - General Chief Complaint: Breathing Difficulty Stated Complaint: RIB PAIN/WHEEZING/CHEST PAIN Time Seen by Provider: 10/17/18 20:38 Mode of Arrival: Ambulatory Information source: Patient Notes: Patient is a 33-year-old female with past medical history of pleural effusions and fibromyalgia presenting to the emergency department with bilateral anterior rib pain. Patient reports symptoms have been ongoing for several days. She reports the pain radiates into her chest and neck. She reports the pain feels like a squeezing pain which has currently resolved itself. She denies any nausea, vomiting or diarrhea. She denies any shortness of breath just states that the pain increases with deep breaths. Patient denies use of any oral contraceptives, denies any recent travel, denies any history of DVT or PE but does report that she is a smoker. Patient reports this feels very similar to when she had a pleural effusion in the past. TRAVEL OUTSIDE OF THE [place] IN LAST 30 DAYS: No - Related Data Allergies/Adverse Reactions: No Known Allergies Allergy (Verified 10/17/18 19:44) Past Medical History - General Information source: Patient - Social History Smoking Status: Current Every Day Smoker Frequency of alcohol use: None Drug Abuse: None Family History: Reviewed & Not Pertinent - Past Medical History Cardiac Medical History: Reports: Hx Hypertension Pulmonary Medical History: Reports: Hx Bronchitis, Hx Pneumonia, Other - Pleural effusion Renal/ Medical History: Reports: Hx Kidney Stones. Denies: Hx Peritoneal Dialysis Musculoskeletal Medical History: Reports Hx Fibromyalgia Psychiatric Medical History: Comment Only: Hx Depression - anxiety Past Surgical History: Reports: Hx Section, Hx Cholecystectomy, Hx Kidney (Renal Surgery) - stone removal - Immunizations Immunizations up to date: Yes Hx Diphtheria, Pertussis, Tetanus Vaccination: Yes Review of Systems - Review of Systems Constitutional: No symptoms reported EENT: No symptoms reported Cardiovascular: Chest pain Respiratory: No symptoms reported Gastrointestinal: No symptoms reported Genitourinary: No symptoms reported Female Genitourinary: No symptoms reported Musculoskeletal: No symptoms reported Skin: No symptoms reported Hematologic/Lymphatic: No symptoms reported Neurological/Psychological: No symptoms reported Physical Exam - Vital signs Vitals: Temp Pulse Resp BP Pulse Ox 98.3 F 95 21 H 146/95 H 98 10/17/18 20:18 10/17/18 20:18 10/17/18 20:18 10/17/18 20:18 10/17/18 20:18 - Notes Notes: PHYSICAL EXAMINATION: GENERAL: Well-appearing, well-nourished and in no acute distress. HEAD: Atraumatic, normocephalic. EYES: Pupils equal round and reactive to light, extraocular movements intact, conjunctiva are normal. ENT: Nares patent, oropharynx clear without exudates. Moist mucous membranes. NECK: Normal range of motion, supple without lymphadenopathy LUNGS: Faint expiratory wheezes noted bilaterally. HEART: Regular rate and rhythm without murmurs ABDOMEN: Soft, nontender, nondistended abdomen. No guarding, no rebound. No masses appreciated. Female : No CVA tenderness. Musculoskeletal: Normal range of motion, no pitting or edema. No cyanosis. Point tenderness to the anterior bilateral ribs under bilateral breasts. NEUROLOGICAL: Cranial nerves grossly intact. Normal speech, normal gait. Normal sensory, motor exams PSYCH: Normal mood, normal affect. SKIN: Warm, Dry, normal turgor, no rashes or lesions noted. Course - Re-evaluation Re-evalutation: Patient appears well, nontoxic and vital signs have been reviewed. Labs as recorded are unremarkable. Chest x-ray with no acute findings to include cardiomegaly, infiltrate or pneumothorax. Went back to the room to reevaluate the patient patient has eloped from the room. Nursing staff state that she eloped at approximately 2330. - Vital Signs Vital signs: Temp Pulse Resp BP Pulse Ox 98.3 F 95 21 H 146/95 H 98 10/17/18 20:18 10/17/18 20:18 10/17/18 20:18 10/17/18 20:18 10/17/18 20:18 - Laboratory Result Diagrams: 10/17/18 21:02 10/17/18 21:02 Laboratory results interpreted by me: 10/17/18 21:02 Chloride 108 H Glucose 67 L Total Protein 5.9 L Discharge - Discharge Clinical Impression: Rib pain Condition: Stable Disposition: ELOPED
[2018-10-17] MEDS ORDERED: KETOROLAC TROMETHAMINE 60 MG/2 ML SDV IM ONE (22:26)
--- NOTE | 2018-10-18 07:42 | EKG REPORT ---
SEVERITY:- ABNORMAL ECG - SINUS RHYTHM NONSPECIFIC T ABNORMALITIES, ANTERIOR LEADS : Confirmed by: Fabrice Cerda MD 18-Oct-2018 07:41:06
== END 2018-10-17 23:45 | disposition left against medical advice (07) ==
LOC: ER 19:30
DX: R07.81 Pleurodynia (principal); R06.00 Dyspnea, unspecified; R06.2 Wheezing; R07.9 Chest pain, unspecified; F17.200 Nicotine dependence, unspecified, uncomplicated; I10 Essential (primary) hypertension; Z87.442 Personal history of urinary calculi; Z90.49 Acquired absence of other specified parts of digestive tract
CPT/HCPCS: 36415; 71046; 80053; 85025; 93005; 93010; 99281

== ENCOUNTER 2019-03-16 11:17 | Emergency (ER) | payer SELFPAY ==
--- NOTE | 2019-03-16 11:32 | ER Document Report ---
ED Medical Screen (RME) - General Chief Complaint: Palpitations Stated Complaint: HEART PALPITATIONS Time Seen by Provider: 03/16/19 11:27 Mode of Arrival: Ambulatory Information source: Patient Notes: 34-year-old female presents to ED for palpitations. She does have idiopathic intracranial hypertension as well as high blood pressure. States she is having dizziness shortness of breath headache and "does not feel right. She states she is nauseated no vomiting. States she smokes a pack of cigarettes a day. He denies alcohol or drugs. Is alert and oriented respirations regular nonlabored at this time. She states her menstrual cycle was last month and is due anytime now I have greeted and performed a rapid initial assessment of this patient. A comprehensive ED assessment and evaluation of the patient, analysis of test results and completion of medical decision making process will be conducted by an additional ED providers. TRAVEL OUTSIDE OF THE [place] IN LAST 30 DAYS: No - Related Data Allergies/Adverse Reactions: No Known Allergies Allergy (Verified 10/17/18 19:44) Past Medical History - Past Medical History Cardiac Medical History: Reports: Hx Hypertension Pulmonary Medical History: Reports: Hx Bronchitis, Hx Pneumonia Renal/ Medical History: Reports: Hx Kidney Stones. Denies: Hx Peritoneal Dialysis Musculoskeltal Medical History: Reports Hx Fibromyalgia Psychiatric Medical History: Comment Only: Hx Depression - anxiety Past Surgical History: Reports: Hx Section, Hx Cholecystectomy, Hx Kidney (Renal Surgery) - stone removal - Immunizations Immunizations up to date: Yes Hx Diphtheria, Pertussis, Tetanus Vaccination: Yes
[2019-03-16 12:18] LABS: ABSOLUTE BASOPHILS # (AUTO) 0.1 10^3/uL (0.0-0.2); ABSOLUTE EOSINOPHILS # (AUTO) 0.2 10^3/uL (0.0-0.6); ABSOLUTE LYMPHOCYTES (AUTO) 2.2 10^3/uL (0.5-4.7); ABSOLUTE MONOCYTES (AUTO) 0.7 10^3/uL (0.1-1.4); ABSOLUTE NEUT (AUTO) 6.5 10^3/uL (1.7-8.2); BASOPHILS % (AUTO) 1.2 % (0-2); EOSINOPHILS % (AUTO) 1.8 % (0-6); HEMATOCRIT 45.2 % (36.0-47.0); HEMOGLOBIN 15.4 g/dL (12.0-15.5); LYMPHOCYTES % (AUTO) 22.8 % (13-45); MEAN CORPUSCULAR HGB CONC 34.1 g/dL (32.0-36.0); MEAN CORPUSCULAR VOLUME 91 fl (80-97); MONOCYTES % (AUTO) 7.2 % (3-13); PLATELET COUNT 263 10^3/uL (150-450); RED BLOOD COUNT 4.97 10^6/uL (3.72-5.28); RED CELL DISTRIBUTION WIDTH 13.6 % (11.5-14.0); TOTAL CELLS COUNTED % (AUTO) 100 %; WHITE BLOOD COUNT 9.8 10^3/uL (4.0-10.5)
[2019-03-16 12:41] LABS: ALKALINE PHOSPHATASE 110 U/L (38-126); ANION GAP 9 (5-19); ASPARTATE AMINO TRANSFERASE 19 U/L (14-36); BILIRUBIN,DIRECT 0.1 mg/dL (0.0-0.4); BILIRUBIN,TOTAL 0.3 mg/dL (0.2-1.3); BLOOD UREA NITROGEN 19 mg/dL (7-20); CALCIUM 9.6 mg/dL (8.4-10.2); CARBON DIOXIDE 23 mmol/L (22-30); CHLORIDE 105 mmol/L (98-107); GLUCOSE 88 mg/dL (75-110); POTASSIUM 4.3 mmol/L (3.6-5.0); TOTAL PROTEIN 6.9 g/dL (6.3-8.2)
--- NOTE | 2019-03-16 12:49 | RADIOLOGY REPORT (SQ) ---
EXAM DESCRIPTION: CHEST 2 VIEWS COMPLETED DATE/TIME: 03/16/2019 12:36 pm REASON FOR STUDY: palpitations COMPARISON: 10/17/2018 EXAM PARAMETERS: NUMBER OF VIEWS: two views TECHNIQUE: Digital Frontal and Lateral radiographic views of the chest acquired. RADIATION DOSE: NA LIMITATIONS: none FINDINGS: LUNGS AND PLEURA: No opacities, masses or pneumothorax. No pleural effusion. MEDIASTINUM AND HILAR STRUCTURES: No masses or contour abnormalities. HEART AND VASCULAR STRUCTURES: Heart normal size. No evidence for failure. BONES: No acute findings. HARDWARE: None in the chest. OTHER: No other significant finding. IMPRESSION: NO ACUTE RADIOGRAPHIC FINDING IN THE CHEST. TECHNICAL DOCUMENTATION: JOB ID: [id number] [employer]- All Rights Reserved Reading location - IP/workstation name: [email or web address]
[2019-03-16 14:03] VITALS: BP 120/82
[2019-03-16 14:05] LABS: APPEARANCE,URINE CLOUDY; BILIRUBIN,URINE NEGATIVE (NEGATIVE); COLOR,URINE YELLOW; GLUCOSE, URINE NEGATIVE (NEGATIVE); KETONES,URINE NEGATIVE (NEGATIVE); PROTEIN,URINE NEGATIVE (NEGATIVE); URINE SPECIFIC GRAVITY 1.021; UROBILINOGEN,URINE NEGATIVE mg/dL (<2.0)
--- NOTE | 2019-03-16 14:33 | ER Document Report ---
ED General - General Chief Complaint: Palpitations Stated Complaint: HEART PALPITATIONS Time Seen by Provider: 03/16/19 11:27 Mode of Arrival: Ambulatory TRAVEL OUTSIDE OF THE [place] IN LAST 30 DAYS: No - HPI Notes: 34-year-old female to the emergency department with complaints of palpitations for the past 2 to 3 days with associated lightheadedness, shortness of breath. She states that she has had shortness of breath for some time. She states that she does not think that related to the palpitations. She states that she feels like she has heart racing and she feels like she might pass out. She denies any fevers or chills, chest pain, abdominal pain, nausea, vomiting, diarrhea. She states that she has a history of hypertension and intracranial hypertension. She states that she sustained Diamox but has not been on it for several months. She states that she recently moved to the area and does not have a primary care physician. She states that she cannot stay any longer for her work-up as she has only one ride and they are here to pick her up. - Related Data Allergies/Adverse Reactions: No Known Allergies Allergy (Verified 03/16/19 11:29) Past Medical History - General Information source: Patient - Social History Smoking Status: Current Every Day Smoker Chew tobacco use (# tins/day): No Drug Abuse: None Family History: Reviewed & Not Pertinent Patient has suicidal ideation: No Patient has homicidal ideation: No - Past Medical History Cardiac Medical History: Reports: Hx Hypertension Pulmonary Medical History: Reports: Hx Bronchitis, Hx Pneumonia Renal/ Medical History: Reports: Hx Kidney Stones. Denies: Hx Peritoneal Dialysis Musculoskeletal Medical History: Reports Hx Fibromyalgia Psychiatric Medical History: Comment Only: Hx Depression - anxiety Past Surgical History: Reports: Hx Section, Hx Cholecystectomy, Hx Kidney (Renal Surgery) - stone removal - Immunizations Immunizations up to date: Yes Hx Diphtheria, Pertussis, Tetanus Vaccination: Yes Review of Systems - Review of Systems Constitutional: denies: Chills, Fever EENT: No symptoms reported Cardiovascular: Palpitations, Heart racing, Lightheaded. denies: Dyspnea, Syncope Respiratory: Short of breath. denies: Cough Gastrointestinal: denies: Abdominal pain, Diarrhea, Nausea, Vomiting Genitourinary: No symptoms reported Musculoskeletal: No symptoms reported Skin: No symptoms reported Hematologic/Lymphatic: No symptoms reported Neurological/Psychological: No symptoms reported -: Yes All other systems reviewed and negative Physical Exam - Vital signs Vitals: Temp Pulse Resp BP Pulse Ox 97.9 F 93 16 136/91 H 100 03/16/19 11:29 03/16/19 11:29 03/16/19 11:29 03/16/19 11:29 03/16/19 11:29 Interpretation: Hypertensive - General General appearance: Appears well, Alert In distress: None - HEENT Head: Normocephalic, Atraumatic Eyes: Normal Pupils: PERRL - Respiratory Respiratory status: No respiratory distress Chest status: Nontender Breath sounds: Normal. No: Nonproductive cough, Productive cough, Rales, Rhonchi, Stridor, Wheezing Chest palpation: Normal - Cardiovascular Rhythm: Regular Heart sounds: Normal auscultation Murmur: No Notes: No pedal edema - Abdominal Inspection: Normal Distension: No distension Bowel sounds: Normal Tenderness: Nontender Organomegaly: No organomegaly - Back Back: Normal, Nontender. 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 Still pending is TSH and a magnesium. She has a reassuring EKG my plan with the that if she is willing to stay to ensure that these labs were okay to send her to cardiology for further evaluation for palpitations. Despite talking to her about that she states that she cannot stay because she needs to have a ride home. I explained to her that leaving prior to evaluation completed could lead to arrhythmias, prolonged hospitalization, cardiac arrest, . She is not an arrhythmia today on EKG. She states that despite this, she still would like to leave. We will have her sign an AMA form. She does state that she wants to work note prior to leaving. - Vital Signs Vital signs: Temp Pulse Resp BP Pulse Ox 97.6 F 79 15 120/82 99 03/16/19 14:01 03/16/19 14:01 03/16/19 14:03 03/16/19 14:01 03/16/19 14:03 - Laboratory Result Diagrams: 03/16/19 11:43 03/16/19 11:43 Laboratory results interpreted by me: 03/16/19 11:43 Leukocyte Esterase Rfl TRACE H - Diagnostic Test Radiology reviewed: Image reviewed, Reports reviewed - EKG Interpretation by Me EKG shows normal: Sinus rhythm Rate: Normal Rhythm: NSR When compared to previous EKG there are: No significant change Additional EKG results interpreted by me: 03/16/19 NO STEMI. T wave inversions in anterior leads which are the same from previous on 10/17/2018 Discharge - Discharge Clinical Impression: Palpitations Condition: Stable Disposition: AGAINST MEDICAL ADVICE Forms: Return to Work
--- NOTE | 2019-03-17 22:03 | EKG REPORT ---
SEVERITY:- ABNORMAL ECG - SINUS RHYTHM NONSPECIFIC T ABNORMALITIES, ANTERIOR LEADS : Confirmed by: Angel Stacy 17-Mar-2019 22:02:37
== END 2019-03-16 15:10 | disposition left against medical advice (07) ==
LOC: ER 11:17
DX: R00.2 Palpitations (principal); R42 Dizziness and giddiness; R06.02 Shortness of breath; F17.200 Nicotine dependence, unspecified, uncomplicated; I10 Essential (primary) hypertension
CPT/HCPCS: 36415; 71046; 80053; 81001; 83735; 84443; 84484; 84703; 85025; 87086; 87088; 87186; 93005; 93010; 99285